=== PATIENT | female | born 1970 | race Caucasian/White ===

== ENCOUNTER 2022-09-13 10:40 | Outpatient (CLI) | payer OTHER, SELFPAY | END 2022-09-13 10:41 | disposition home or self-care (01) | LOC: OP CLINIC 10:40 | PROVIDERS: Visit Provider Surgery | DX: Z12.11 Encounter for screening for malignant neoplasm of colon (principal) | CPT/HCPCS: 45378; J2250; J3010 ==

== ENCOUNTER 2022-09-14 16:25 | Outpatient (CLI) | payer OTHER, SELFPAY ==
[2022-09-14 10:47] LABS: Cholesterol* 270 mg/dL (90-199)
[2022-09-14 10:48] LABS: Glucose* 107 mg/dL (60-115); HDL Cholesterol* 82 mg/dL (>=50); LDL Cholesterol Calculated 174 mg/dL (<100); Triglycerides* 71 mg/dL (40-149)
[2022-09-15 17:11] LABS: Rheumatoid Factor <10 IU/mL (0-14)
== END 2022-09-14 16:26 | disposition home or self-care (01) ==
PROVIDERS: Visit Provider Nurse Practitioner Family
DX: M25.50 Pain in unspecified joint (principal); Z13.1 Encounter for screening for diabetes mellitus; Z13.6 Encounter for screening for cardiovascular disorders
CPT/HCPCS: 80061; 82947; 86431

== ENCOUNTER 2022-09-22 08:53 | Outpatient (CLI) | payer OTHER, SELFPAY ==
[2022-09-22 10:12] LABS: Cholesterol* 227 mg/dL (90-199); Triglycerides* 78 mg/dL (40-149)
[2022-09-22 10:13] LABS: HDL Cholesterol* 67 mg/dL (>=50); LDL Cholesterol Calculated 144 mg/dL (<100)
== END 2022-09-22 08:54 | disposition home or self-care (01) ==
PROVIDERS: Visit Provider Nurse Practitioner Family
DX: Z13.6 Encounter for screening for cardiovascular disorders (principal)
CPT/HCPCS: 80061

== ENCOUNTER 2022-11-01 08:02 | Outpatient (CLI) | payer OTHER, SELFPAY ==
--- NOTE | 2022-11-01 08:15 | CRLHL7_ITS ---
For Patients: As a result of the Century Cures Act, medical imaging exams and procedure reports are released immediately into your electronic medical record. You may view this report before your referring provider. If you have questions, please contact your health care provider. BILATERAL SCREENING MAMMOGRAM WITH COMPUTER-AIDED DETECTION AND TOMOSYNTHESIS TECHNIQUE: CC and MLO views were obtained. These mammographic images have been obtained using full-field digital technique. These mammographic images were interpreted with the benefit of computer-aided detection. Breast Tomosynthesis was used in this interpretation. COMPARISON FILM: 10/05/21, 09/08/20, 09/17/19, 06/21/18 (diagnostic). FINDINGS: The breasts are heterogeneously dense, which may obscure small masses IMPRESSION: There is no radiographic evidence for malignancy. ASSESSMENT: BI-RADS Category 1: Negative RECOMMENDATION: Routine screening mammogram in 1 year. A lay language report of this examination will be provided to the patient. Bakari Ruiz M.D. Diagnostic Radiologist [email or web address] Transcribed: 3:27 [email or web address].[email or web address] uribe/Dictated by: Bakari Ruiz MD @ 11/01/2022 11:03:00 AM (Electronically Signed)
== END 2022-11-01 08:03 | disposition home or self-care (01) ==
LOC: MAMMO 08:03
PROVIDERS: Visit Provider Nurse Practitioner Family
DX: Z12.31 Encounter for screening mammogram for malignant neoplasm of breast (principal); R92.2 Inconclusive mammogram
CPT/HCPCS: 77063; 77067

== ENCOUNTER 2022-12-19 08:18 | Outpatient (CLI) | payer OTHER, SELFPAY | END 2022-12-19 08:19 | disposition home or self-care (01) | LOC: NFLDREF 16:44 | PROVIDERS: Visit Provider Nurse Practitioner Family | DX: E78.5 Hyperlipidemia, unspecified (principal) | CPT/HCPCS: 80061 ==

== ENCOUNTER 2023-10-31 17:49 | Outpatient (CLI) | payer OTHER, SELFPAY | END 2023-10-31 17:50 | disposition home or self-care (01) | PROVIDERS: PCP Nurse Practitioner Family; Visit Provider Nurse Practitioner Family | DX: Z01.818 Encounter for other preprocedural examination (principal) | CPT/HCPCS: 80053; 85025 ==

== ENCOUNTER 2023-11-14 16:49 | Inpatient (IN) | payer OTHER, SELFPAY ==
[2023-11-13] VITALS (23 sets, daily range): BP systolic 105–148; BP diastolic 62–107; PULSE 62–114; RESP 14–18; TEMP 35.6–37.3; O2SAT 92–100; BMI 28.0
[2023-11-13] MEDS: SODIUM CHLORIDE 0.9 % (FLUSH) 10 ML SYRINGE IVF (07:37)
[2023-11-13] MEDS: LACTATED RINGERS 1000 ML 1,000 ML 100 ML IV ×2 (07:38→09:46)
--- NOTE | 2023-11-13 07:40 | XR_ITS ---
Patient: BE LYLSE Facility:?[facility] Patient ID:?[id number] Site Patient ID:?[id number]. Site :?1970 Study:?XRay-Hip Left 2V-11/13/2023 12:13:33 PM Ordering Physician:?DR. YANEZ Final Report: Indication: POST OP Technique: AP pelvis and lateral view left hip Findings/Impression: Hardware from a left total hip arthroplasty is in satisfactory position. Bone alignment is normal. No sign of acute fracture. Postop changes are within normal limits. Dictated by Bakari Ruiz MD @ 11/13/2023 1:14:53 PM Signed by:?Bakari Ruiz MD @11/13/2023 1:14:53 PM (Electronic Signature)
[2023-11-13] MEDS: OXYCODONE (CR) 10 MG TAB.ER.12H PO (07:50)
[2023-11-13] MEDS: ACETAMINOPHEN 500 MG TABLET 1000 MG PO ×2 (07:50→20:53)
[2023-11-13] MEDS: fentaNYL 100 MCG/2 ML inj IVP (08:38)
[2023-11-13] MEDS: MIDAZOLAM HCL 1 MG/ML inj IVP (08:38)
--- NOTE | 2023-11-13 08:39 | SUR.PREOP ---
TIME?OUT:?0837 PT/Fanny Keys RN/Dr. Víctor MDA?VERIFICATION?OF?SURGICAL?SITE left hip,?PROCEDURE,?AND?CONSENT OBTAINED?PRIOR?TO?INVASIVE?PROCEDURE.
--- NOTE | 2023-11-13 09:15 | XR_ITS ---
Patient: BE LYLES Facility:?[facility] Patient ID:?[id number] Site Patient ID:?[id number]. Site :?[id number] Study:?XRay-Hip Left 1V-11/13/2023 11:15:55 AM Ordering Physician:?DR. YANEZ Final Report: Indication: Hip replacement surgery Technique: AP hip fluoroscopic image. Fluoroscopy time 47.4 seconds. Findings/Impression: Hardware from a left total hip arthroplasty is in satisfactory position. Dictated by Bakrai Ruiz MD @ 11/13/2023 1:11:30 PM Signed by:?Bakari Ruiz MD @11/13/2023 1:11:30 PM (Electronic Signature)
[2023-11-13] MEDS: TRANEXAMIC ACID 100 MG/ML INJ 1000 MG IV (09:32)
[2023-11-13] MEDS: CEFAZOLIN 2 GM in 0.9 % SODIUM CHLORIDE Mini-bag 100 ML IVPB ×3 (09:33→23:46)
--- NOTE | 2023-11-13 09:35 | W.PM.H&PU ---
History & Physical Update History & Physical Update H&P Reviewed and patient assessed: No changes noted
--- NOTE | 2023-11-13 11:18 | PM.ORPRC ---
Procedure Note Date of procedure: 11/13/23 Procedure: PREOPERATIVE DIAGNOSIS: 1. Left hip osteoarthritis, severe, primary POSTOPERATIVE DIAGNOSIS: 1. Left hip osteoarthritis, severe, primary PROCEDURE: 1. Left total hip arthroplasty-anterior approach 2. 04956 - intraoperative fluoroscopy up to 1 hour. SURGEON: Bryan Higgins MD. TRAVEL REGISTERED NURSE NICU: Chuy Duvall PA-C; ADEEL Calle - Of note, a skilled marketing assistant was critical for this case to aid in patient positioning, tissue retraction, limb manipulation/positioning, dislocation/relocation, patient safety, and closure. ANESTHESIA: General endotracheal anesthetic EBL: 300 mL IMPLANTS: DePuy J&J uncemented total hip Mcdermott cup size 46, hole eliminator, +0 neutral liner Actis stem, standard offset, size 4 +5 mm ceramic 28 mm head. COMPLICATIONS: None evident INDICATIONS: The patient is a pleasant 53-year-old female who has experienced severe left hip pain and difficulty bearing weight. Workup included x-rays which revealed severe osteoarthrosis in the hip. Given the deformity, the dysfunction, and the pain, as well as the failure of nonoperative management, recommendation was made for surgery. FINDINGS: Full-thickness chondral loss throughout the femoral head. Osteophytes on the femoral head/neck junction and perimeter of the acetabulum. Moderate effusion upon entering the joint. Significant synovitis noted. DESCRIPTION OF PROCEDURE: Following a thorough discussion of risks, benefits, and alternatives consent was obtained and the left hip was marked. The patient was brought to the operating room and placed supine on the operating table. Induction of anesthesia was undertaken. 2 g IV Ancef and 1 g tranexamic acid was administered within 1 hr of incision preoperatively. Proper time-out was performed identifying proper patient, site, procedure. The operative extremity was prepped and draped in the appropriate sterile fashion using ChloraPrep after the patient was positioned on the [place] table with head in neutral alignment and all bony prominences well padded. C-arm fluoroscopic imaging was utilized to confirm proper pelvis rotation and position, and to get true AP films of both the contralateral left, and the affected left hip. This is for comparison. A longitudinal incision was made starting approximately 1 cm distal to the ASIS, and 3-4 cm lateral. The incision was extended distally aiming toward the lateral border the patella. Sharp incision through skin and bovie cautery through the subcutaneous tissue allowed identification of the TFL fascia. This was sharply divided, and the fascia bluntly released from the muscle fibers as we dissected medial. Upon coming to the medial border, we were able to retract the TFL laterally, and penetrated the deeper fascia and identify the crossing circumflex vessels. These were ligated/cauterized. The rectus was elevated from the capsule, and retractors placed laterally and medially along the femoral neck to help with visualization of the capsule. We then performed an inverted T capsulotomy. The capsule was tagged for later repair. Retractors were placed inside the capsule. The femoral neck was visualized after releasing medially down to the lesser trochanter, along the saddle laterally, and up onto the acetabulum. The femoral neck cut was made in line with our preoperative templating. The head was removed in a single piece, and sized. We turned our attention to acetabular preparation. Initially, the labrum was resected from around the perimeter, the pulvinar was excised, allowing us to visualize the false wall. We started the reaming with a 43 mm reamer. This was medialized down to the true wall. We then enlarged our reamers sequentially up to one size less than the selected cup size. We trialed at the same size and found it to have an excellent fit. The selected cup was then opened, inserted, and impacted in line with the goal of 40-45? of abduction, and 20-25? of anteversion. This was confirmed on C-arm fluoroscopic imaging to be in the appropriate/goal position. Once the cup was placed we placed a hole eliminator and a liner consistent with preop planning. Attention was turned to the femoral preparation. The limb was extended, externally rotated, and adducted. The posteromedial capsule was released, as retractors were placed allowing excellent access to the proximal femur. Initially a ordering box operator was followed by canal finder followed by various broaches. We broached sequentially up to size noted above, found it to have excellent rotational control, and trialing various heads and necks, revealed that appropriate neck offset, and the above noted head size provided the greatest stability, and latter-day of length, and offset. C-arm fluoroscopic imaging confirmed position of the stem, as well as leg lengths, which were compared with the pre procedure all fluoroscopic images. Trial implants were removed, the real femoral stem inserted, as was the ceramic head. After reducing, the leg was placed through range of motion and stability was confirmed anterior, posterior, and lateral. A 3 min Betadine soak was then performed, and thorough irrigation with normal saline followed. Closure of the capsule was performed with #1 PDS. Bleeding was confirmed to be controlled at this stage, and the TFL fascia was closed with #0 strata fix. Subcutaneous, and subcuticular closure was performed with 2-0 Vicryl and 4-0 Monocryl, respectively. Dressings were applied, and the patient was awoken from anesthesia and transferred the PACU in stable condition. A skilled marketing assistant was critical for this case to aid in patient positioning, tissue retraction, proximal femur exposure, limb manipulation/positioning, dislocation/relocation, patient safety, and closure. PLAN: 1. Weight bear as tolerated operative extremity. 2. 23 hr perioperative antibiotics. 3. Ice. 4. PT/OT consults for ambulation assistance/mobility education. 5. Social work consult for discharge planning. 6. DVT prophylaxis with at SCDs, Shayan Baere, and Xarelto x5 days followed by aspirin for a total of 1 month..
--- NOTE | 2023-11-13 11:34 | W.PM.NB ---
Nerve Block Nerve Block Time Seen by Provider: 08:45 Date Seen: 11/13/23 Type of block requested by surgeon for post-operative analgesia: LIZETTE/LFCN Side: left Time out performed: Yes Verification of patient name: Yes Verification of date of : Yes Site marking: site marked Name of person performing procedure: Tuan Continuous monitoring Was continuous monitoring of O2 sat, B/P, cardiac rehabilitation specialist, recorded every 15 minutes?: Yes Procedure Checklist: sterile prep, needles and gloves Ultrasound guided. Images saved: Yes Medications given in 5ml increments after negative aspiration: Ropivicaine %: 0.5 mL: 30 Needle gauge: 20 Decadron (mg): 10 Precedex (mcg): 25 Patient tolerated procedure well: Yes Additional comments: Needle noted below psoas tendon needle noted adjacent to LFCN Block Charges Block Charge (with Pro Fee): Other Periph Nerve Block Use of Ultrasound Machine for Block: Yes- US Guidance/pain block
--- NOTE | 2023-11-13 12:02 | W.ANESCHARGE ---
Anesthesia Charges Start Date/Time Anesthesia Start Date: 11/13/23 Anesthesia Start Time: 09:24 Stop Date/Time Anesthesia Stop Date: 11/13/23 Anesthesia Stop Time: 12:02
[2023-11-13] MEDS: LACTATED RINGERS 1000 ML 1,000 ML 35 ML IV (12:21)
[2023-11-13] MEDS: fentaNYL 100 MCG/2 ML inj 50 MCG IVP (12:22)
[2023-11-13] MEDS: HYDROmorphone 0.5 mg/0.5 ml inj IVP (13:24)
[2023-11-13] MEDS: LACTATED RINGERS 1000 ML 1,000 ML 75 ML IV (13:29)
[2023-11-13] MEDS: ONDANSETRON 2 MG/ML inj 4 MG IVP (15:18)
--- NOTE | 2023-11-13 17:26 | P.IMCN_ITS ---
Date of Consult Patient: [facility] Patient Consult date: 11/13/23 Requesting Physician: Orthopedics Primary Care Provider: Lalitha Isabel APRN, CNP Consult Narrative Reason for consult: Medical management of comorbidities Narrative: Baldev Vásquez is a 53 year old female who presented to the hospital today for an elective L RENARD with Dr. Higgins. There were no surgical or anesthetic complications noted during procedure. Patient's H&P reviewed, PCP is Lalitha Isabel. Past medical history significant for: OA, recently saw Cardiology with reassuring visit. History of blood clots: No Postoperative plan: Home with and mother Upon arrival to the floor, Baldev notes mild intermittent nausea and burping. No vomiting. No chest pain. Vital signs reassuring. [facility] Medical History (Updated 10/31/23 @ 18:31 by Lalitha Isabel APRN, NISREEN) History of shingles ?Z86.19 - Personal history of other infectious and parasitic diseases (ICD- 10) Pain in pelvis (06/2018) ?R10.2 - Pelvic and perineal pain (ICD-10) History of spontaneous ?Z87.59 - Personal history of other complications of , childbirth and the puerperium (ICD-10) History of delivery ?Z87.51 - Personal history of pre-term labor (ICD-10) History of pre-eclampsia ?Z87.59 - Personal history of other complications of , childbirth and the puerperium (ICD-10) History of abnormal cervical Papanicolaou smear ?Z87.42 - Personal history of other diseases of the female genital tract (ICD-10) Excessive bleeding in premenopausal period ?N92.4 - Excessive bleeding in the premenopausal period (ICD-10) Breast lump on left side at 1 o'clock position (06/2018) ?N63.21 - Unspecified lump in the left breast, upper outer quadrant (ICD-10) Benign paroxysmal positional vertigo ?H81.10 - Benign paroxysmal vertigo, unspecified ear (ICD-10) Surgical History (Updated 11/13/23 @ 18:46 by Emerald Rausch MD) Status post left hip replacement ?Z96.642 - Presence of left artificial hip joint (ICD-10) Hx of LASIK ?Z98.890 - Other specified postprocedural states (ICD-10) History of hysterectomy ?Z90.710 - Acquired absence of both cervix and uterus (ICD-10) History of tubal ligation (2003) ?Z98.51 - Tubal ligation status (ICD-10) History of endometrial ablation (11/07/12) ?Z98.890 - Other specified postprocedural states (ICD-10) History of dilation and curettage ?Z98.890 - Other specified postprocedural states (ICD-10) History of section (1999) ?Z98.891 - History of uterine scar from previous surgery (ICD-10) History of appendectomy (1991) ?Z90.49 - Acquired absence of other specified parts of digestive tract (ICD- 10) Family History (Updated 10/31/23 @ 18:33 by Lalitha Isabel APRN, MEDICAL REVIEWER) Mother Breast cancer, Onset Age: 50 High blood pressure Family/Other Stroke Diabetes High blood pressure Father Myocardial infarction Substance abuse Maternal Grandfather Pancreatic cancer Sister Breast cancer Brother Myocardial infarction, Onset Age: 53 Social History (Updated 10/31/23 @ 14:57 by Nadya Espinoza ~ [facility]) Narrative: , [facility], 3 kids non-smoker social drinker- 6/week Smoking Status: Never smoker Do you use any of these nicotine containing products: None Second hand tobacco smoke exposure: No How often do you have a drink containing alcohol: never How many standard drinks containing alcohol do you have on a typical day: 1 or 2 AUDIT-C Alcohol total score: 0 Non-prescribed substance use: denies use Caffeine: Yes (coffee 1 cup/day) Little interest or pleasure in doing things: not at all Feeling down, depressed, or hopeless: not at all service: No Meds Home Medications and Allergies Home Medications Medication Instructions Recorded Confirmed Type No Known Home Medications 10/31/23 10/31/23 History Allergies Allergy/AdvReac Type Severity Reaction Status Date / Time iodine Allergy Verified 11/13/23 07:23 shellfish derived Allergy Verified 11/13/23 07:23 Exam Narrative: Exam Narrative: GEN: Alert and oriented, sitting comfortably in bedside chair HEENT: EOMIs bilaterally, no scleral icterus CV: RRR, No concerning murmurs R: LCTA bilaterally without concerning wheezing, mildly decreased bibasilar breath sounds Ext: Shayan hose bilaterally Skin: No concerning skin lesions or rashes on exposed skin Neuro: Nonfocal Psych: Appropriate Const: Vital Signs, click to edit/add: Vital Signs - 24 hr 11/13/23 08:03 11/13/23 08:37 11/13/23 08:40 Temperature 99.2 F Pulse Rate 90 81 81 Pulse Rate [Pulse Oximeter] Respiratory Rate 16 16 16 Blood Pressure 141/93 H 148/77 H 146/73 H Blood Pressure [Ri ght Arm] Pulse Oximetry 100 100 100 Oxygen Delivery Me thod Room Air Nasal Cannula Nasal Cannula Oxygen Flow Rate 2 2 11/13/23 08:50 11/13/23 11:57 11/13/23 12:00 Temperature 97.5 F L Pulse Rate 70 82 87 Pulse Rate [Pulse Oximeter] Respiratory Rate 16 14 16 Blood Pressure 128/76 130/107 H 111/65 Blood Pressure [Ri ght Arm] Pulse Oximetry 100 95 95 Oxygen Delivery Me thod Nasal Cannula Room Air Room Air Oxygen Flow Rate 2 11/13/23 12:05 11/13/23 12:10 11/13/23 12:15 Temperature Pulse Rate 72 72 78 Pulse Rate [Pulse Oximeter] Respiratory Rate 16 16 16 Blood Pressure 112/73 108/79 124/71 Blood Pressure [Ri ght Arm] Pulse Oximetry 97 97 95 Oxygen Delivery Me thod Room Air Room Air Room Air Oxygen Flow Rate 11/13/23 12:20 11/13/23 12:27 11/13/23 12:35 Temperature 97.2 F L 96.0 F L Pulse Rate 74 69 67 Pulse Rate [Pulse Oximeter] Respiratory Rate 16 16 16 Blood Pressure 115/81 113/71 Blood Pressure [Ri ght Arm] 123/78 Pulse Oximetry 95 96 99 Oxygen Delivery Me thod Room Air Room Air Room Air Oxygen Flow Rate 11/13/23 12:45 11/13/23 13:00 11/13/23 13:15 Temperature 96.2 F L 96.0 F L 96.1 F L Pulse Rate Pulse Rate [Pulse Oximeter] 68 62 92 Respiratory Rate 16 16 18 Blood Pressure Blood Pressure [Ri ght Arm] 124/77 116/75 117/71 Pulse Oximetry 99 100 98 Oxygen Delivery Me thod Room Air Room Air Room Air Oxygen Flow Rate 11/13/23 13:30 Temperature Pulse Rate Pulse Rate [Pulse Oximeter] 80 Respiratory Rate 16 Blood Pressure Blood Pressure [Ri ght Arm] 111/68 Pulse Oximetry 98 Oxygen Delivery Me thod Room Air Oxygen Flow Rate Assessment and Plan Assessment and plan (1) Status post left hip replacement: Problem comment: - 11/13/23Ronaldo Status: Acute Plan - pain management and prophylaxis per orthopedic surgery team - continue home medications for comorbidities - anticipate routine postoperative course - patient will continue to monitor nausea, low risk for acute cardiac disease given history and recent cardiology evaluation
[2023-11-13] MEDS: SENNOSIDES 1 TAB TABLET 2 TAB PO (20:52)
[2023-11-13] MEDS: OXYCODONE 5 MG TABLET PO ×2 (20:52→23:44)
[2023-11-13] MEDS: BENZOCAINE/MENTHOL 1 EACH LOZENGE MUCOUS MEM (21:22)
[2023-11-14] VITALS (11 sets, daily range): BP systolic 97–127; BP diastolic 52–91; PULSE 70–133; RESP 16–18; TEMP 36.4–37.1; O2SAT 98–100
--- NOTE | 2023-11-14 04:53 | PC.NURSE ---
PATIENT PLEASANT AND COOPERATIVE, UP A1 WALKER AND BELT, USING PRN OXYCODONE FOR LEFT HIP PAIN MANAGEMENT WITH RELIEF, VOIDING, TOLERATING FLUIDS IV SALINE LOCKED, THROAT LOZENGE FOR OCCASIONAL SORE THROAT WITH RELIEF.
[2023-11-14 06:47] LABS: Basophils Percent Auto 0.1 % (0.0-3.0); Hematocrit 29.4 % (33.0-51.0); Hemoglobin* 9.6 gm/dL (12.0-16.0); Immature Granulocytes Pct Auto 0.2 %; Lymphocytes Percent Auto 10.9 % (20-44); Mean Corpuscular HGB Conc 33 gm/dL (32-36); Mean Corpuscular Hemoglobin 29 pg (26-34); Mean Corpuscular Volume 89 fL (80-100); Monocytes Percent Auto 7.6 % (0.0-11.0); Neutrophils Percent Auto 81.2 % (42.0-72.0); Platelet Count* 199 K/uL (140-440); RDW Coefficient of Variation % 13.4 % (11.5-15.5); Red Blood Count 3.31 m/uL (4.00-5.20); White Blood Count* 12.34 K/uL (4.50-11.00)
[2023-11-14 06:54] LABS: Sodium* 135 mmol/L (135-149)
[2023-11-14 06:55] LABS: Potassium* 4.2 mmol/L (3.6-5.1)
[2023-11-14 06:57] LABS: Creatinine* 0.7 mg/dL (0.5-1.5); Est. Creatinine Clearance* 68.52; Estimated Glomerular Filt Rate 102 ml/min; Slide Review Reflex No
[2023-11-14 06:58] LABS: Blood Urea Nitrogen* 12 mg/dL (7-30)
[2023-11-14] MEDS: SENNOSIDES 1 TAB TABLET 2 TAB PO ×2 (07:31→07:32)
[2023-11-14] MEDS: RIVAROXABAN 10 MG TABLET PO (07:31)
[2023-11-14] MEDS: ACETAMINOPHEN 500 MG TABLET 1000 MG PO ×3 (07:31→19:33)
[2023-11-14] MEDS: OXYCODONE 5 MG TABLET PO ×5 (07:32→23:57)
--- NOTE | 2023-11-14 09:59 | PM.ORPN ---
Subjective Subjective Date Seen: 11/14/23 Principal diagnosis: Status postop day 1, left total hip arthroplasty - anterior approach Interval history: Patient reports doing well. Yesterday, she felt that she had a lot of air in her stomach requiring belching. Every time she crunched forward, this causes a sensation of needing to burp but was unable to. This caused nausea. She finally had a large burp, which improved symptoms, and now have resolved symptoms. Mild lightheadedness/dizziness today causing some mild nausea, but eating okay with a good appetite. The wound feels sensitive. Mild ipsilateral knee discomfort. She has history of knee discomfort. Pain managed with scheduled and PRN medications, ice. DVT prophylaxis: Rivaroxaban, bilateral knee high Shayan stockings, SCDs, walking. Denies fevers, chills, aches, vomiting, CP, SOB/YIP. No lightheadedness at rest. Ortho Exam Narrative Exam Narrative: -Patient appears comfortable in recliner; no apparent acute distress. Eating breakfast. present. -Alert and oriented times 3 -Operative hip swollen; soft tissues supple; no obvious erythema. Ecchymosis minimal. Warmth appropriate -Surgical dressing clean, dry, intact; no obvious drainage, no erythematous streaking peripheral to the bandage -Bilateral calves soft and supple; no significant swelling, edema, tenderness, erythema, discoloration, warmth, or palpable cords -2+ DP/PT pulses, intact dermatomes and myotomes distally (5/5 strength). No numbness about the lateral femoral cutaneous nerve distribution. Sensitive at the bandage region -left knee nontender palpation, no impairment with range of motion Const Vital Signs, click to edit/add: Vital Signs - 24 hr 11/13/23 11:57 11/13/23 12:00 11/13/23 12:05 Temperature 97.5 F L Pulse Rate 82 87 72 Pulse Rate [Pulse Oximeter] Respiratory Rate 14 16 16 Blood Pressure 130/107 H 111/65 112/73 Blood Pressure [Right Arm] Pulse Oximetry 95 95 97 Oxygen Delivery Method Room Air Room Air Room Air Oxygen Flow Rate 11/13/23 12:10 11/13/23 12:15 11/13/23 12:20 Temperature Pulse Rate 72 78 74 Pulse Rate [Pulse Oximeter] Respiratory Rate 16 16 16 Blood Pressure 108/79 124/71 115/81 Blood Pressure [Right Arm] Pulse Oximetry 97 95 95 Oxygen Delivery Method Room Air Room Air Room Air Oxygen Flow Rate 11/13/23 12:27 11/13/23 12:35 11/13/23 12:45 Temperature 97.2 F L 96.0 F L 96.2 F L Pulse Rate 69 67 Pulse Rate [Pulse Oximeter] 68 Respiratory Rate 16 16 16 Blood Pressure 113/71 Blood Pressure [Right Arm] 123/78 124/77 Pulse Oximetry 96 99 99 Oxygen Delivery Method Room Air Room Air Room Air Oxygen Flow Rate 11/13/23 13:00 11/13/23 13:15 11/13/23 13:30 Temperature 96.0 F L 96.1 F L Pulse Rate Pulse Rate [Pulse Oximeter] 62 92 80 Respiratory Rate 16 18 16 Blood Pressure Blood Pressure [Right Arm] 116/75 117/71 111/68 Pulse Oximetry 100 98 98 Oxygen Delivery Method Room Air Room Air Room Air Oxygen Flow Rate 11/13/23 14:00 11/13/23 14:30 11/13/23 15:30 Temperature 96.5 F L 96.5 F L Pulse Rate Pulse Rate [Pulse Oximeter] 65 73 73 Respiratory Rate 16 16 Blood Pressure Blood Pressure [Right Arm] 106/63 126/80 127/73 Pulse Oximetry 92 97 99 Oxygen Delivery Method Room Air Room Air Room Air Oxygen Flow Rate 11/13/23 15:30 11/13/23 16:30 11/13/23 17:30 Temperature 96.5 F L Pulse Rate Pulse Rate [Pulse Oximeter] 73 85 87 Respiratory Rate 16 Blood Pressure Blood Pressure [Right Arm] 127/73 123/89 115/72 Pulse Oximetry 97 99 98 Oxygen Delivery Method Room Air Room Air Room Air Oxygen Flow Rate 2 11/13/23 18:30 11/13/23 23:00 11/13/23 23:00 Temperature 97.2 F L 98.0 F Pulse Rate Pulse Rate [Pulse Oximeter] 73 96 114 H Respiratory Rate 16 16 Blood Pressure Blood Pressure [Right Arm] 106/77 105/62 Pulse Oximetry 97 96 Oxygen Delivery Method Room Air Room Air Oxygen Flow Rate 11/14/23 00:41 11/14/23 04:00 Temperature 98.5 F 97.6 F Pulse Rate Pulse Rate [Pulse Oximeter] 114 H 70 Respiratory Rate 16 16 Blood Pressure Blood Pressure [Right Arm] 120/69 97/52 L Pulse Oximetry 99 98 Oxygen Delivery Method Room Air Room Air Oxygen Flow Rate Assessment and Plan Assessment and plan (1) Status post left hip replacement: Problem details: - 11/13/23Ronaldo Status: Acute (2) Acute blood loss anemia (ABLA): Problem details: Surgically related, no excessive blood loss, hemoglobin 9.6, stable, mild lightheaded and nauseous - will continue to monitor while in hospital. She will report to our orthopedic clinic if symptoms continue. Status: Acute Plan - Complete 23 hour perioperative antibiotics. - PT/OT consult for education and assistance. - Social work consult for discharge planning - Prescribed analgesics as needed - DVT prophylaxis: Rivaroxaban, bilateral knee high Shayan Hose stockings and SCDs - Anticipation is for discharge to home with spouse today, 11/14/2023 if the patient remains medically stable, pain is controlled, and they are safe with mobilization.
[2023-11-14] MEDS: 0.9 % SODIUM CHLORIDE 1000 ml 1,000 ML 500 ML IV (10:15)
[2023-11-14] MEDS: 0.9 % SODIUM CHLORIDE 1000 ml 1,000 ML IV (16:57)
[2023-11-15] VITALS: BP 125/78; PULSE 96; RESP 16; TEMP 36.8; O2SAT 99
--- NOTE | 2023-11-15 00:20 | PC.NURSE ---
Janeen PA updated with Hgb results per request. Chuy/Sangeetha aware.
[2023-11-15] MEDS: ACETAMINOPHEN 500 MG TABLET 1000 MG PO ×3 (02:52→14:11)
[2023-11-15 03:30] VITALS: BP 119/69; PULSE 100; RESP 16; TEMP 36.8; O2SAT 98
[2023-11-15] MEDS: OXYCODONE 5 MG TABLET PO (05:31)
[2023-11-15] MEDS: ONDANSETRON 2 MG/ML inj 4 MG IVP (05:54)
--- NOTE | 2023-11-15 06:31 | PC.NURSE ---
End of shift 0260-1026: Assumed care of patient at 2330. Pt is A&O, VSS and afebrile. She is SBA with walker to the bathroom. Reports left hip pain at 5-6/10 but is relieved to 2-3/10 with PRN oxycodone. Oxy last given @ 0530. C/o all over body aches/tightness r/t increased muscle use after surgery which has been adequately relieved with scheduled Tylenol.? Pt reports some intermittent dizziness after ambulation. Left anterior hip surgical dressing C/D/I. PIV left FA SL and C/D/I. Early AM pt had a large, formed BM followed up with some nausea. IV Zofran and cold wash cloths given @ 0555 with some relief per pt. TELE read ST all night, rate fluctuating between 80s- low 100s. ?
[2023-11-15 06:42] LABS: Hemoglobin* 9.1 gm/dL (12.0-16.0)
[2023-11-15 07:00] VITALS: PULSE 97; RESP 14
[2023-11-15 08:11] VITALS: BP 131/76; PULSE 97; RESP 14; TEMP 37.1; O2SAT 98
[2023-11-15] MEDS: RIVAROXABAN 10 MG TABLET PO (09:16)
[2023-11-15] MEDS: SENNOSIDES 1 TAB TABLET 2 TAB PO (09:16)
--- NOTE | 2023-11-15 09:17 | CT_ITS ---
Patient: BE LYLES Facility:?[facility] RIS Patient ID:?[id number] Site Patient ID:?[id number]. Site :?[id number] Study:?CT-Chest CHEST PE PROTOCOL W/95CC MPABLO590-0/28/2024 12:46:47 PM Ordering Physician:AMRLON Final Report: INDICATION: POST OP TACHYCARDIA, POST RENARD TECHNIQUE: CT chest PE was acquired with 95 cc Isovue 370 IV contrast. COMPARISON: None. FINDINGS: Heart and vasculature: Contrast opacification of the pulmonary arterial tree is adequate. No sign of pulmonary embolism. Heart size is normal. Thoracic aorta and pulmonary artery are normal in caliber. Lungs and pleura: Mild mosaic attenuation may be related incomplete inspiration. No pleural effusions, pleural thickening, or pneumothorax. Lymph nodes/mediastinum: No mediastinal, hilar, or axillary adenopathy. Chest wall: No masses. Upper abdomen: No acute or significant findings. Bones: Unremarkable for age. IMPRESSION: No pulmonary embolism identified. No acute cardiopulmonary process identified. Please note that all CT scans at this facility use dose modulation, iterative reconstruction, and/or weight-based dosing when appropriate to reduce radiation dose to as low as reasonably achievable. Dictated by Byron Gill MD @ 11/15/2023 1:05:48 PM Signed by:?Byorn Gill MD @11/15/2023 1:05:48 PM (Electronic Signature)
[2023-11-15] MEDS: diphenhydrAMINE 50 MG/ML inj IVP (09:45)
[2023-11-15] MEDS: HYDROCORTISONE SOD SUCCINATE 50 MG/ML inj 200 MG IVP (10:00)
[2023-11-15 11:13] VITALS: BP 117/68; PULSE 85; RESP 16; TEMP 37.2; O2SAT 99
--- NOTE | 2023-11-15 11:31 | PM.IMPN1 ---
Progress Note: A&P Assessment and plan (1) Status post left hip replacement: Problem details: - 11/13/23, Ronaldo Status: Acute (2) Acute blood loss anemia (ABLA): Problem details: Surgically related, no excessive blood loss, hemoglobin 9.6, stable, mild lightheaded and nauseous - will continue to monitor while in hospital. She will report to our orthopedic clinic if symptoms continue. POD#1, hemoglobin 9.1. No longer symptomatic. Status: Acute (3) Tachycardia: Problem details: Intermittent. Heart rate anywhere from 80s to 140s. Asymptomatic, does not feel heart racing, palpitations. EKG shows NSR 89-90 this morning. CTA PE to rule out PE. Status: Acute Plan Pending CTA study, patient will discharge to home with spouse. Time Spent With Patient Total time spent: Total time spent caring for the patient today was 45 minutes. This includes time spent for the visit reviewing the chart, time spent during the visit, time spent after the visit and documentation and planning in coordination of care. Subjective Date Seen: 11/15/23 Interval history: Patient is seen this morning, ambulating with therapy. Her heart rate on telemetry is in the 140s. She tells me she cannot feel her heart racing. Is currently calm. Was reported to be crying, nauseous, and quite anxious overnight. This has resolved. Telemetry with activity 140s. Upon lying down, EKG shows NSR, rate 89-90. Asymptomatic. CTA PE study ordered. Exam Narrative: Exam Narrative: PHYSICAL EXAM General: Pleasant, conversant, NAD Cardiovascular: Tachycardic Pulmonary: No dyspnea on room air Neurological: Alert, answering questions appropriately Extremities: Postoperative dressing in place Skin: Warm, dry. Const: Vital Signs, click to edit/add: Vital Signs - 24 hr 11/14/23 15:00 11/14/23 16:00 11/14/23 16:31 Temperature 98.3 F Pulse Rate 104 H Pulse Rate [Pulse Oximeter] 76 103 H Pulse Rate [orthos tatic lying] Pulse Rate [orthos tatic sitting] Pulse Rate [orthos tatic standing] Respiratory Rate 18 18 Blood Pressure [Ri ght Arm] 122/71 Blood Pressure [or thostatic lying] Blood Pressure [or thostatic sitting] Blood Pressure [or thostatic standing ] Pulse Oximetry 99 Oxygen Delivery Me thod Room Air Oxygen Flow Rate 11/14/23 17:58 11/14/23 20:00 11/14/23 23:00 Temperature Pulse Rate 103 H Pulse Rate [Pulse Oximeter] 116 H Pulse Rate [orthos tatic lying] 103 H Pulse Rate [orthos tatic sitting] 108 H Pulse Rate [orthos tatic standing] 133 H Respiratory Rate 18 Blood Pressure [Ri ght Arm] 125/67 Blood Pressure [or thostatic lying] 122/67 Blood Pressure [or thostatic sitting] 123/61 Blood Pressure [or thostatic standing ] 127/91 H Pulse Oximetry 98 Oxygen Delivery Me thod Room Air Oxygen Flow Rate 11/14/23 23:00 11/15/23 00:00 11/15/23 03:30 Temperature 98.2 F 98.2 F Pulse Rate Pulse Rate [Pulse Oximeter] 96 96 100 Pulse Rate [orthos tatic lying] Pulse Rate [orthos tatic sitting] Pulse Rate [orthos tatic standing] Respiratory Rate 18 16 16 Blood Pressure [Ri ght Arm] 125/78 119/69 Blood Pressure [or thostatic lying] Blood Pressure [or thostatic sitting] Blood Pressure [or thostatic standing ] Pulse Oximetry 99 98 Oxygen Delivery Me thod Room Air Room Air Oxygen Flow Rate 2 11/15/23 07:00 11/15/23 08:11 11/15/23 11:13 Temperature 98.7 F 98.9 F Pulse Rate Pulse Rate [Pulse Oximeter] 97 97 85 Pulse Rate [orthos tatic lying] Pulse Rate [orthos tatic sitting] Pulse Rate [orthos tatic standing] Respiratory Rate 14 14 16 Blood Pressure [Ri ght Arm] 131/76 117/68 Blood Pressure [or thostatic lying] Blood Pressure [or thostatic sitting] Blood Pressure [or thostatic standing ] Pulse Oximetry 98 99 Oxygen Delivery Me thod Room Air Room Air Oxygen Flow Rate Labs Labs: Laboratory Results - last 24 hr 11/14/23 11/15/23 18:20 06:28 Hgb 9.0 L 9.1 L
[2023-11-15 11:56] VITALS: PULSE 89
--- NOTE | 2023-11-15 15:33 | PC.NURSE ---
Discharge: Patient pleasant and cooperative. Patient vitally stable, lungs clear, BS WNL, IV removed, catheter intact. Patient did become tachy when up with therapy in the morning, then HR resumed to normal when in bed. Patient rates pain 0-2/10, only scheduled tylenol given. Patient tolerating regular diet and urinating. Patient signed belongings sheet and discharge form. Patient had no further questions regarding discharge. Patient left the floor by wheelchair at 1528, to home.
== END 2023-11-15 15:28 | disposition home or self-care (01) | DRG 470 ==
LOC: OR 17:02 → MEDSURG 11-15 11:31
PROVIDERS: Family Medicine; Physician Assistant Surgical; Admitting Provider Orthopaedic Surgery Sports Medicine; PCP Nurse Practitioner Family; Visit Provider Orthopaedic Surgery Sports Medicine
PROC: 0SRB04A Replacement of Left Hip Joint with Ceramic on Polyethylene Synthetic Substitute, Uncemented, Open Approach (ICD-10-PCS; CPT 27130; principal; 2023-11-13 09:15)
DX: M16.12 Unilateral primary osteoarthritis, left hip (principal); D62 Acute posthemorrhagic anemia; G89.18 Other acute postprocedural pain; R42 Dizziness and giddiness; M54.2 Cervicalgia; R00.0 Tachycardia, unspecified; R11.0 Nausea; E78.5 Hyperlipidemia, unspecified
CPT/HCPCS: 01214; 36415; 64450; 71275; 73501; 76000; 76942; 82565; 84132; 84295; 84520; 85018; 85025; 86850; 86900; 86901; 93005; 97110; 97116; 97161; 97165; 97530; 97535; A9270; C1776; J0690; J1100; J1170; J1200; J1720; J2250; J2405; J2704; J2710; J2795; J3010; J7030; J7120; Q9967

== ENCOUNTER 2024-06-13 13:45 | Outpatient (CLI) | payer OTHER, SELFPAY ==
--- NOTE | 2024-06-13 15:00 | CRLHL7_ITS ---
For Patients: As a result of the Century Cures Act, medical imaging exams and procedure reports are released immediately into your electronic medical record. You may view this report before your referring provider. If you have questions, please contact your health care provider. BILATERAL SCREENING MAMMOGRAM WITH COMPUTER-AIDED DETECTION AND TOMOSYNTHESIS TECHNIQUE: CC and MLO views were obtained. These mammographic images have been obtained using full-field digital technique. These mammographic images were interpreted with the benefit of computer-aided detection. Breast Tomosynthesis was used in this interpretation. COMPARISON FILM: 11/01/22, 10/05/21, 09/08/20. FINDINGS: There are scattered areas of fibroglandular density. IMPRESSION: There is no radiographic evidence for malignancy. ASSESSMENT: BI-RADS Category 1: Negative RECOMMENDATION: Routine screening mammogram in 1 year. A lay language report of this examination will be provided to the patient. Bakari Ruiz M.D. Diagnostic Radiologist [email or web address] SP/Dictated by: Bakari Ruiz MD @ 06/21/2024 10:24:00 AM (Electronically Signed)
== END 2024-06-13 13:46 | disposition home or self-care (01) ==
LOC: MAMMO 13:46
PROVIDERS: PCP Nurse Practitioner Family; Visit Provider Nurse Practitioner Family
DX: Z12.31 Encounter for screening mammogram for malignant neoplasm of breast (principal)
CPT/HCPCS: 77063; 77067

== ENCOUNTER 2025-06-16 13:15 | Outpatient (CLI) | payer BC, SELFPAY ==
--- NOTE | 2025-06-16 13:20 | CRLHL7_ITS ---
For Patients: As a result of the Century Cures Act, medical imaging exams and procedure reports are released immediately into your electronic medical record. You may view this report before your referring provider. If you have questions, please contact your health care provider. INDICATION: BILATERAL SCREENING MAMMOGRAM, ASYMPTOMATIC 54 Y/O FEMALE COMPARISON: 06/13/2024, 11/01/2022, 10/05/2021 TECHNIQUE: Digital mammogram in CC and MLO projections including computer-aided detection (CAD) and tomosynthesis. BREAST COMPOSITION: There are scattered areas of fibroglandular density. FINDINGS: No suspicious findings. ASSESSMENT: BI-RADS 1 Negative RECOMMENDATION: Annual screening mammogram. A lay language report of this examination will be provided to the patient. Dictated by: Bakari Ruiz MD @ 06/17/2025 09:50:06 (Electronically Signed)
== END 2025-06-16 13:16 | disposition home or self-care (01) ==
LOC: MAMMO 13:17
PROVIDERS: PCP Nurse Practitioner Family; Visit Provider Nurse Practitioner Family
DX: Z12.31 Encounter for screening mammogram for malignant neoplasm of breast (principal)
CPT/HCPCS: 77063; 77067